=== PATIENT | female | born 1955 | race Caucasian/White ===

== ENCOUNTER 2020-05-08 13:50 | Outpatient (CLI) | payer MEDICARE, MEDICAID, SELFPAY ==
--- NOTE | ~2020-05-08 | MM_ITS ---
EXAMINATION: MM screening melisa BI w inés HISTORY: Screening mammogram TECHNIQUE: Craniocaudal and mediolateral oblique 3-D tomosynthesis images were obtained and synthetic 2-D images were generated. CAD analysis was submitted and interpreted. COMPARISON: 08/13/2018, 11/04/2015 bilateral digital screening mammogram examinations BREAST PARENCHYMAL COMPOSITION: There are scattered areas of fibroglandular density. FINDINGS: Possible new 4 mm mass at the upper anterior fibroglandular margin on MLO view; recommend d iagnostic right mammogram, with ultrasound if required. Otherwise there is no evidence of suspicious mass, calcification, or architectural distortion to sugg est malignancy in either breast. There has been no other suspicious interval change. IMPRESSION: 1. 4 mm possible mass, upper anterior right breast on MLO view versus composite shadowing 2. Diagnostic right mammogram is recommended, with ultrasound if required Reviewed, dictated and finalized at location A.
== END 2020-05-08 13:51 | disposition home or self-care (01) ==
LOC: ANHIMG 13:57
PROVIDERS: PCP Family Medicine; Visit Provider Family Medicine
DX: Z12.31 Encounter for screening mammogram for malignant neoplasm of breast (principal); R92.8 Other abnormal and inconclusive findings on diagnostic imaging of breast
CPT/HCPCS: 77063; 77067

== ENCOUNTER 2020-06-01 10:34 | Outpatient (CLI) | payer MEDICARE, MEDICAID, SELFPAY ==
--- NOTE | ~2020-06-01 | MMUS_ITS ---
EXAMINATION: MM diagnostic mammo unilat RT, US breast RT limited HISTORY: Possible right breast mass on screening mammogram TECHNIQUE: Additional 3-D tomosynthesis images of the right breast were performed and synthetic 2-D i mages were generated. CAD analysis was submitted and interpreted. High resolution limited right breas t ultrasound was performed. COMPARISON: 05/08/2020, 08/13/2018, 11/04/2015 FINDINGS: MAMMOGRAPHIC FINDINGS: No definite persistent mass is identified with spot compression views of the right breast. There is n o suspicious calcification or architectural distortion. ULTRASOUND: Cysts in the upper outer quadrant of the breast measure up to 6 mm. No suspicious cystic or solid mas s is identified. IMPRESSION: 1. No mammographic or sonographic evidence of malignancy. 2. Recommend routine screening mammography in one year. BI-RADS Category 2: Benign finding(s). Reviewed, dictated and finalized at location A. IMPRESSION: 1. No mammographic or sonographic evidence of malignancy. 2. Recommend routine screening mammography in one year. BI-RADS Category 2: Benign finding(s).
== END 2020-06-01 10:35 | disposition home or self-care (01) ==
LOC: ANHIMG 10:37
PROVIDERS: PCP Family Medicine; Visit Provider Nurse Practitioner Family
DX: R92.8 Other abnormal and inconclusive findings on diagnostic imaging of breast (principal)
CPT/HCPCS: 76642; 77065

== ENCOUNTER 2020-12-10 09:56 | Outpatient (CLI) | payer MEDICARE, MEDICAID, SELFPAY ==
--- NOTE | ~2020-12-10 | XR_ITS ---
EXAMINATION: XR chest 2V DATE: 12/10/2020 11:01 INDICATION: Sternal pain. TECHNIQUE: Frontal and lateral views of the chest were obtained. COMPARISON: Chest 2 views 09/24/2014 FINDINGS: The chest demonstrates clear lungs without pneumonia, pleural effusion, or pneumothorax. Th e heart size is normal. There are surgical clips in the abdomen. IMPRESSION: 1. No acute cardiopulmonary disease. Reviewed, dictated and finalized at location A. 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
[2020-12-10 10:57] LABS: Basophils Absolute Auto 0.1 K/mm3 (0.0-0.1); Basophils Percent Auto 1.2 % (0.2-1.2); Eosinophils Absolute Auto 0.5 K/mm3 (0-0.3); Eosinophils Percent Auto 5.3 % (0-4.4); Hematocrit 39.8 % (37.0-47.0); Hemoglobin 13.5 g/dL (12.0-15.0); Immature Granulocyte Absolute 0.05 K/mm3 (0.00-0.031); Immature Granulocyte Percent A 0.6 % (0-0.5); Lymphocytes Absolute Auto 2.85 K/mm3 (0.9-3.2); Lymphocytes Percent Auto 33.8 % (18.3-44.2); Mean Corpuscular HGB Conc 33.9 g/dl (32-36); Mean Corpuscular Hemoglobin 29.7 pg (26-34); Mean Corpuscular Volume 87.7 fl (80-100); Mean Platelet Volume 10.6 fl (7.4-10.4); Monocytes Absolute Auto 0.5 K/mm3 (0.1-0.6); Monocytes Percent Auto 5.7 % (2.6-8.5); Neutrophils Absolute Auto 4.5 K/mm3 (1.3-6.7); Neutrophils Percent Auto 53.4 % (45.5-73.1); Platelet Count Result 235 k/mm3 (150-375); Red Blood Count 4.54 M/mm3 (4.2-5.4); Red Cell Distribution Width 13.3 % (11.5-14.5); White Blood Count 8.4 K/mm3 (4.5-10.0)
[2020-12-10 11:04] LABS: Hemoglobin A1C 6.7 % (<5.7)
[2020-12-10 11:05] LABS: Urine Cotinine NEGATIVE
[2020-12-10 11:11] LABS: Alanine Aminotransferase 33 U/L (4-35); Albumin Level 4.3 g/dL (3.5-5.1); Alkaline Phosphatase 79 U/L (38-126); Anion Gap 10 mmol/L (8-16); Aspartate Amino Transferase 31 U/L (14-36); Bilirubin,Total 0.3 mg/dL (0.2-1.3); Blood Urea Nitrogen 14 mg/dL (7-17); Calcium 9.3 mg/dL (8.4-10.2); Carbon Dioxide 23 mmol/L (22-30); Chloride 107 mmol/L (98-107); Cholesterol 201 mg/dL (0-200); Estimated Glomerular Filt Rate > 60; Glucose 158 mg/dL (65-105); HDL Direct 52 mg/dL; Potassium 4.4 mmol/L (3.4-5.0); Sodium 140 mmol/L (137-145); Triglycerides 144 mg/dL (<150)
[2020-12-10 11:12] LABS: Albumin Level 4.2 g/dL (3.5-5.1); Estimated Glomerular Filt Rate > 60; Glucose 160 mg/dL (65-105)
[2020-12-10 11:22] LABS: LDL Cholesterol Direct 123 mg/dL
[2020-12-10 11:35] LABS: Creatinine Urine 166.1 mg/dL
[2020-12-10 11:38] LABS: MALB Creatinine Ratio 5.9 mg/g (0-30); Microalbumin Urine Random 9.8 mg/L (0-16.7)
[2020-12-10 11:51] LABS: Vitamin D 25 Hydroxy 61.3 ng/mL
== END 2020-12-10 09:57 | disposition home or self-care (01) ==
PROVIDERS: Orthopaedic Surgery; PCP Family Medicine; Visit Provider Nurse Practitioner Family
DX: F33.1 Major depressive disorder, recurrent, moderate (principal); I10 Essential (primary) hypertension; E11.59 Type 2 diabetes mellitus with other circulatory complications; Z01.818 Encounter for other preprocedural examination; M17.11 Unilateral primary osteoarthritis, right knee; R07.89 Other chest pain; I47.1 Supraventricular tachycardia; J44.9 Chronic obstructive pulmonary disease, unspecified; E55.9 Vitamin D deficiency, unspecified
CPT/HCPCS: 36415; 71046; 80053; 80061; 80307; 82040; 82043; 82306; 82565; 82947; 83036; 84443; 85025

== ENCOUNTER 2021-05-20 11:27 | Emergency (ER) | payer MEDICARE, SELFPAY ==
--- NOTE | ~2021-05-20 | XR_ITS ---
EXAMINATION: XR wrist LT 2V DATE: 05/20/2021 11:59 INDICATION: Left wrist pain. Fall. TECHNIQUE: 2 views of left wrist were obtained. COMPARISON: None. FINDINGS: Bone alignment is normal. There is a possible nondisplaced fracture of the radial styloid. There is mild osteoarthritis of first carpometacarpal joint. IMPRESSION: 1. Possible nondisplaced fracture of the radial styloid. Correlate for point tenderness. Reviewed, dictated and finalized at location A. IMPRESSION: 1. Possible nondisplaced fracture of the radial styloid. Correlate for point te nderness.
[2021-05-20 12:20] VITALS: BP 169/93; PULSE 93; RESP 18; TEMP 36.6; O2SAT 97
--- NOTE | 2021-05-20 15:13 | ED.GENADULT ---
HPI - General Adult General Chief complaint: Extremity Injury, Upper Stated complaint: fall wrist pain Time Seen by Provider: 05/20/21 14:50 Source: patient Mode of arrival: ambulatory Limitations: no limitations History of Present Illness HPI narrative: Patient here for evaluation of left wrist pain after fall out of bed on Monday. She happened to have just gotten her cast removed from the wrist several weeks ago and has been in a splint. She now has pain over the left radial head. No swelling. She does feel better in a splint. Onset (ago): day(s) Related Data Allergies Allergy/AdvReac Type Severity Reaction Status Date / Time codeine Allergy Palpitation Verified 05/20/21 13:58 s iohexol Allergy Swelling Verified 05/20/21 13:58 [From contrast - CT, X-RAY] of Lip/Tongue/Throat Review of Systems Review of Systems: All systems reviewed & are unremarkable except as noted in HPI and below PMFSH Social History Social History Gender identity (if verbalized by the patient): Female Exam Const: General: no acute distress and alert Orientation/consciousness: patient oriented x3 HENMT: Head: normal to inspection Resp: Effort & Inspection: normal respiratory effort Cardio: Rate: regular rate Rhythm: regular rhythm Skin: General skin exam: normal color Extrem: Right upper extremity: normal to inspection, normal capillary refill, no joint enlargement and wrist (pain to palpation over radial stylus) Psych: Mental Status: mental status grossly normal Course Course Emergency Course: X-ray shows possible radial styloid fracture given patient's history spoke with Dr. Lou. He reviewed the x-rays and said it looks exactly the same as his last film. He will follow up with the patient but continue to wear the splint until he sees her. Plan discussed with the patient she is in agreement. Vital Signs Vital signs: Vital Signs Temperature 36.6 C 05/20/21 12:20 Pulse Rate 93 05/20/21 12:20 Respiratory Rate 18 05/20/21 12:20 Blood Pressure 169/93 H 05/20/21 12:20 Pulse Oximetry 97 05/20/21 12:20 Temperature 36.6 C 05/20/21 12:20 Pulse Rate 93 05/20/21 12:20 Respiratory Rate 18 05/20/21 12:20 Blood Pressure 169/93 H 05/20/21 12:20 Pulse Oximetry 97 05/20/21 12:20 Medical Decision Making Vital Signs Vital Signs: Vital Signs Temperature 36.6 C 05/20/21 12:20 Pulse Rate 93 05/20/21 12:20 Respiratory Rate 18 05/20/21 12:20 Blood Pressure 169/93 H 05/20/21 12:20 Pulse Oximetry 97 05/20/21 12:20 Temperature 36.6 C 05/20/21 12:20 Pulse Rate 93 05/20/21 12:20 Respiratory Rate 18 05/20/21 12:20 Blood Pressure 169/93 H 05/20/21 12:20 Pulse Oximetry 97 05/20/21 12:20 Discharge Plan Discharge Clinical Impression: Fracture of wrist Qualifiers: Encounter type: subsequent encounter Fracture type: closed Laterality: left Fracture healing: with routine healing Qualified Code(s): S62.102D - Fracture of unspecified carpal bone, left wrist, subsequent encounter for fracture with routine healing Patient Disposition: Home, Self-Care Condition: Stable Instructions: Antibiotic Form, Wrist Fracture in Adults (ED) Additional Instructions: Continue to wear your splint as before. Follow-up with Dr. Lou's office first available appointment. May take ibuprofen or Tylenol for the pain. Follow-up/Referrals: Harms,Joshua Almeida M.D. [Primary Care Provider] - Reji Lou MD [Physician] - Time of Disposition: 15:31
--- NOTE | 2021-05-20 15:32 | PC.NURSE ---
pt stated that she was on a tight time schedule, pt stated that she had to leave and attend an obgyn appt, pt educated on need to stay and speak with provider abut xray findings, that she would be leaving/eloping from dept. pt said she would return later, made aware that she would have to resign in and have possible long wait. pt understands and thanks staff for their help
== END 2021-05-20 15:40 | disposition home or self-care (01) ==
PROVIDERS: Emergency Provider Emergency Medicine; PCP Family Medicine
DX: S52.515D Nondisplaced fracture of left radial styloid process, subsequent encounter for closed fracture with routine healing (principal); X58.XXXD Exposure to other specified factors, subsequent encounter
CPT/HCPCS: 73100; 99283

== ENCOUNTER 2021-06-09 11:13 | Outpatient (CLI) | payer MEDICARE, SELFPAY ==
--- NOTE | ~2021-06-09 | MM_ITS ---
EXAMINATION: MM screening melisa BI w inés HISTORY: Screening TECHNIQUE: Craniocaudal and mediolateral oblique 3-D tomosynthesis images were obtained and synthetic 2-D images were generated. CAD analysis was submitted and interpreted. COMPARISON: Comparison to multiple prior studies sequentially, with oldest reviewed study dated 12/2013. BREAST PARENCHYMAL COMPOSITION: There are scattered areas of fibroglandular density. FINDINGS: There is no evidence of suspicious mass, calcification, or architectural distortion to sugg est malignancy in either breast. There has been no suspicious interval change. IMPRESSION: 1. No mammographic evidence of malignancy. 2. Recommend routine screening mammography in one year. BI-RADS Category 1: Negative Reviewed, dictated and finalized at location D.
== END 2021-06-09 11:14 | disposition home or self-care (01) ==
LOC: ANHIMG 11:16
PROVIDERS: PCP Family Medicine; Visit Provider Obstetrics & Gynecology
DX: Z12.31 Encounter for screening mammogram for malignant neoplasm of breast (principal)
CPT/HCPCS: 77063; 77067

== ENCOUNTER 2021-06-09 18:19 | Emergency (ER) | payer MEDICARE, SELFPAY ==
[2021-06-09 18:55] VITALS: BP 152/100; PULSE 87; RESP 18; TEMP 36.1; O2SAT 97
[2021-06-09 19:02] LABS: Glucose Point of Care > 500 mg/dl (65-105)
[2021-06-09 19:14] LABS: Basophils Absolute Auto 0.1 K/mm3 (0.0-0.1); Basophils Percent Auto 1.1 % (0.2-1.2); Eosinophils Absolute Auto 0.5 K/mm3 (0-0.3); Hematocrit 40.8 % (37.0-47.0); Hemoglobin 13.8 g/dL (12.0-15.0); Immature Granulocyte Absolute 0.04 K/mm3 (0.00-0.031); Immature Granulocyte Percent A 0.5 % (0-0.5); Lymphocytes Absolute Auto 2.49 K/mm3 (0.9-3.2); Lymphocytes Percent Auto 34.2 % (18.3-44.2); Mean Corpuscular HGB Conc 33.8 g/dl (32-36); Mean Corpuscular Hemoglobin 29.2 pg (26-34); Mean Corpuscular Volume 86.4 fl (80-100); Mean Platelet Volume 11.4 fl (7.4-10.4); Monocytes Absolute Auto 0.5 K/mm3 (0.1-0.6); Monocytes Percent Auto 6.3 % (2.6-8.5); Neutrophils Absolute Auto 3.7 K/mm3 (1.3-6.7); Neutrophils Percent Auto 50.9 % (45.5-73.1); Platelet Count Result 258 k/mm3 (150-375); Red Blood Count 4.72 M/mm3 (4.2-5.4); Red Cell Distribution Width 12.9 % (11.5-14.5); White Blood Count 7.3 K/mm3 (4.5-10.0)
[2021-06-09 19:30] LABS: Add Urine Microscopic? YES; Appearance Urine Clear (Clear); Bilirubin Urine Negative (Negative); Blood Urine Negative (Negative); Color Urine Straw (Yellow); Glucose Urine UA 3+ mg/dL (Negative); Ketones Urine Trace mg/dL (Negative); Leukocyte Esterase Ur Negative LEU/UL (Negative); Nitrate Urine Negative (Negative); Protein Urine Negative (Negative); RBC Urine 0-2 /hpf (0-2); Specific Grav Ur 1.033 (1.001-1.035); Urobilinogen Urine Negative mg/dL (<2.0); WBC Urine 0-3 /hpf
[2021-06-09 19:35] LABS: Beta-Hydroxybutyrate/Acetoacetate 0.29 mmol/L (0.02-0.27)
[2021-06-09 19:37] LABS: Alanine Aminotransferase 73 U/L (4-35); Albumin Level 4.4 g/dL (3.5-5.1); Alkaline Phosphatase 142 U/L (38-126); Anion Gap 9 mmol/L (8-16); Aspartate Amino Transferase 75 U/L (14-36); Bilirubin,Total 0.7 mg/dL (0.2-1.3); Blood Urea Nitrogen 12 mg/dL (7-17); Calcium 9.8 mg/dL (8.4-10.2); Carbon Dioxide 24 mmol/L (22-30); Chloride 97 mmol/L (98-107); Estimated CRCL calculation 78 ml/min; Estimated Glomerular Filt Rate > 60; Glucose 547 mg/dL (65-110); Magnesium 1.7 mg/dL (1.6-2.3); Phosphorus 3.8 mg/dL (2.5-4.5); Potassium 4.3 mmol/L (3.4-5.0); Sodium 130 mmol/L (137-145)
[2021-06-09 22:19] VITALS: BP 154/96; PULSE 79; RESP 15; TEMP 36.6; O2SAT 97
[2021-06-09] MEDS: INSULIN HUMAN REGULAR (*BKC) 100 UNITS/ML 10 UNITS IV PUSH (22:37)
[2021-06-09] MEDS: SODIUM CHLORIDE 0.9% IV 500 ML 999 ML IV CONT (22:37)
[2021-06-09 22:38] VITALS: BP 140/79; PULSE 78; RESP 17; O2SAT 95
[2021-06-09 22:42] LABS: Glucose Point of Care 391 mg/dl (65-105)
[2021-06-09 22:45] VITALS: RESP 17; O2SAT 99
[2021-06-09 23:31] LABS: Glucose Point of Care 231 mg/dl (65-105)
--- NOTE | 2021-06-09 23:46 | ED.GENADULT ---
HPI - General Adult General Chief complaint: Recheck/Abnormal Lab/Rx Stated complaint: high blood sugar Time Seen by Provider: 06/09/21 22:18 Source: patient Mode of arrival: ambulatory Limitations: no limitations History of Present Illness HPI narrative: 65-year-old with a history of diabetes on Metformin 1000 mg twice a day here with complaints of elevated blood sugar for past 2 days. Patient states that he usually eats only one cucumbers which brings her sugars down however she tried for last 2 days with no significant change in her blood sugar. She also states that she used to be on glipizide however she stopped as her sugars were dropping. She also states that she lost quite a bit of weight in the last year or so. She denies any fever or chills. No history of nausea or vomiting. Onset (ago): day(s) (3) Associated symptoms: denies other symptoms Related Data Home Medications Medication Instructions Recorded Confirmed metformin 500 mg tablet,extended 500 mg PO BID 05/29/20 05/26/21 release 24hr mecobalamin (vitamin B12) 1,000 1,000 mcg PO DAILY 07/21/20 05/26/21 mcg chewable tablet vitamin D3 20 mcg-vit K2 180 tablet PO DAILY tablet 07/28/20 05/26/21 mcg-calcium fructoborate 216 mg tablet dexmethylphenidate 10 mg 10 mg PO DAILY 08/18/20 05/26/21 capsule,extended release [id number] duloxetine 30 mg capsule,delayed 30 mg PO DAILY 08/18/20 05/26/21 release Allergies Allergy/AdvReac Type Severity Reaction Status Date / Time codeine Allergy Unknown elevated Verified 05/26/21 15:26 heart rate pentazocine Allergy Unknown unknown Verified 05/26/21 15:26 [id number] Reductase Allergy Unknown muscle Verified 05/26/21 15:26 Inhibitor weakness iohexol Allergy Swelling Verified 05/26/21 15:26 [From contrast - CT, X-RAY] of Lip/Tongue/Throat Review of Systems Review of Systems: All systems reviewed & are unremarkable except as noted in HPI and below Constitutional: Constitutional: Reports no additional constitutional complaints Eyes: Eyes: Reports no additional eye complaints ENT: Reports system reviewed and no additional complaints, except as documented Cardiovascular: Cardiovascular: Reports no additional cardiovascular complaints Respiratory: Respiratory: Reports no additional respiratory complaints Gastrointestinal: Gastrointestinal: Reports no additional gastrointestinal complaints Musculoskeletal: Musculoskeletal: Reports no additional musculoskeletal complaints Integumentary/Breasts: Skin/Breast: Reports system reviewed and no additional complaints, except as docu Neurologic: Reports system reviewed and no additional complaints, except as documented Endocrine: Endocrine: Reports as per HPI [facility] Past Medical History Medical History Allergies Anemia Anxiety Asthma Cardiac arrhythmia Carpal tunnel syndrome on right Cataracts, both eyes Central sleep apnea Chronic headaches COPD (chronic obstructive pulmonary disease) Depression Diabetes Generalized osteoarthritis of multiple sites GERD (gastroesophageal reflux disease) Hammer toe of right foot Hypertension Neuropathy Ovarian cyst, right Pneumonia PTSD (post-traumatic stress disorder) Restless leg syndrome Sleep apnea SOB (shortness of breath) SVT (supraventricular tachycardia) Thyroid disorder Surgical History Surgical History H/O hernia repair (~2015) H/O tubal ligation (~1974) History of appendectomy History of bunionectomy (~1995) History of ovarian cystectomy (~1999) History of surgical removal of ganglion cyst (~2015) w/Carpal Tunnel Release Rt Wrist Hx of cholecystectomy (~2000) Family History Family History Mother Diabetes mellitus Hypertension Skin cancer Kidney disease Father Family history of coronary a
[2021-06-10 00:04] VITALS: BP 162/96; PULSE 76; RESP 14; O2SAT 97
== END 2021-06-10 00:03 | disposition home or self-care (01) ==
PROVIDERS: Emergency Provider Family Medicine; PCP Family Medicine
DX: Z12.31 Encounter for screening mammogram for malignant neoplasm of breast (principal); E11.65 Type 2 diabetes mellitus with hyperglycemia; Z79.84 Long term (current) use of oral hypoglycemic drugs; F41.9 Anxiety disorder, unspecified; J45.909 Unspecified asthma, uncomplicated; G47.30 Sleep apnea, unspecified; J44.9 Chronic obstructive pulmonary disease, unspecified; M19.90 Unspecified osteoarthritis, unspecified site; K21.9 Gastro-esophageal reflux disease without esophagitis; I10 Essential (primary) hypertension
CPT/HCPCS: 36415; 77063; 77067; 80053; 81001; 82010; 82948; 83735; 84100; 85025; 96361; 96374; 99284; J1815; J7040

== ENCOUNTER → 2021-07-02 17:54 | Outpatient (CLI) | payer MEDICARE, SELFPAY ==
--- NOTE | ~2021-07-02 | DEXA_ITS ---
Bone Density Report Name: Edilia Beth Age: 65 Sex: Female Ethnicity: White Date of : 1955 Indication: postmenopausal; screening for osteoporosis; prior fracture; asthma or emphysema; Referring Provider: Jose Miguel Sanabria Study: Bone densitometry was performed. Exam Date: July 02, 2021 Accession number: [id number] Bone Density: Region BMD T-score Z-score Classification AP Spine (L1-L4) 1.006 -0.4 1.6 Normal Femoral Neck (Left) 0.916 0.6 2.3 Normal Total Hip (Left) 1.157 1.8 3.1 Normal Femoral Neck (Right) 0.903 0.5 2.2 Normal Total Hip (Right) 1.124 1.5 2.9 Normal Total Hip Mean 1.141 1.7 3.0 Normal World Health Organization criteria for BMD impression classify patients as: Normal (T-score at or above -1.0), Osteopenia (T-score between -1.0 and -2.5), or Osteoporosis (T-score at or below -2.5). 10-year Fracture Risk: FRAX not reported because: All T-scores for Spine Total, Hip Total, Femoral Neck at or above -1.0 Previous Exams: Region Exam Age BMD T-score BMD Change BMD Change Date g/cm2 vs Baseline vs Previous AP Spine(L1-L4) 07/02/2021 65 1.006 -0.4 0.019 0.019 08/13/2018 63 0.987 -0.5 Total Hip(Left) 07/02/2021 65 1.157 1.8 0.021 0.021 08/13/2018 63 1.136 1.6 Total Hip(Right) 07/02/2021 65 1.124 1.5 0.033* 0.033* 08/13/2018 63 1.092 1.2 *Denotes significance at 95% confidence level, LSC for AP Spine = 0.022 g/cm2, LSC for Total Hip = 0.027 g/cm2 Clinical Information Provided by Patient: Has had a low trauma fracture Has used the following medications: Vitamin D, MTV Has the following medical conditions: Asthma or Emphysema Patient maximum height was 65.0 Menopause Age: 50 No regular weight bearing exercise Does not regularly consume dairy products Onset of menses at age 10 Number of children 2 Impression: The patient has normal bone mass. The patient has risk factors, including: previous fracture. No significant bone loss was observed. Discussion: BONE DENSITY IS ABOVE THE MINIMUM DESIRABLE LEVEL AT ALL SKELETAL SITES TESTED. This patient?s bone mineral density is above the minimum desirable level (T-score -1.0 or better) at all sites measured. The patient should follow a healthful lifestyle (good nutrition with adequate calcium and vitamin D, and appropriate weight-bearing exercise). Follow-Up: Consider repeating this study in 5 years or so
== END ==
PROVIDERS: PCP Family Medicine; Visit Provider Obstetrics & Gynecology
DX: Z78.0 Asymptomatic menopausal state (principal)
CPT/HCPCS: 77080

== ENCOUNTER → 2021-10-15 03:41 | Outpatient (CLI) | payer MEDICARE, SELFPAY ==
[2021-10-15 22:12] LABS: SARS-CoV-2 RNA PCR Negative
== END ==
PROVIDERS: PCP Family Medicine; Visit Provider Internal Medicine Gastroenterology
DX: Z01.812 Encounter for preprocedural laboratory examination (principal); Z20.822 Contact with and (suspected) exposure to COVID-19
CPT/HCPCS: C9803; U0003; U0005

== ENCOUNTER 2022-01-03 11:01 | Outpatient (CLI) | payer MEDICARE, SELFPAY ==
[2022-01-03 11:43] LABS: Hematocrit 40.8 % (37.0-47.0); Hemoglobin 13.8 g/dL (12.0-15.0)
[2022-01-03 11:52] LABS: Albumin Level 4.3 g/dL (3.5-5.1); Estimated Glomerular Filt Rate > 60; Glucose 186 mg/dL (65-110)
[2022-01-03 12:03] LABS: Hemoglobin A1C 8.5 % (<5.7)
== END 2022-01-03 11:02 | disposition home or self-care (01) ==
LOC: ANHLAB 11:13
PROVIDERS: PCP Family Medicine; Visit Provider Orthopaedic Surgery
DX: M17.11 Unilateral primary osteoarthritis, right knee (principal); Z01.818 Encounter for other preprocedural examination
CPT/HCPCS: 36415; 82040; 82565; 82947; 83036; 85014; 85018